=== PATIENT | male | born 1960 | race Caucasian/White ===

== ENCOUNTER → 2016-08-29 | Outpatient (CLI) | payer BC ==
--- NOTE | 2016-08-29 17:48 | CONS ---
DATE: 08/29/2016 CONSULTATION/NEW PATIENT EVALUATION HISTORY OF PRESENT ILLNESS/SLEEP-WAKE EVALUATION: A 56-year-old gentleman who has been evaluated in the sleep center for obstructive sleep apnea/hypopnea syndrome. Patient has been diagnosed with sleep apnea in another institution 2014 with severe apnea-hypopnea index of 47.7. He was started on treatment with CPAP at a pressure of 7 cm of water. Patient continues to use his CPAP equipment at the present time. SLEEP SCHEDULE: His sleep schedule is from midnight about 8:00 a.m. to 10:00 a.m. basically 7 days a week. FALLING ASLEEP: Sometimes he has problem with falling asleep. He has a TV set in bedroom. DURING SLEEP: He increased his weight the last 2 years about 15 pounds. He wakes up from sleep about 3 times. Sometimes he has episodes of nocturia. No history of cataplexy, sleep paralysis or pathological hallucinations. [place] Sleepiness Scale is 5. PAST MEDICAL HISTORY: Positive for depression, sometimes increasing blood pressure. PAST SURGICAL HISTORY: Status post right knee surgery for meniscus problem x2, status post left hand surgery. SOCIAL HISTORY: Negative for smoking. Alcohol consumption occasional. MEDICATIONS: Cymbalta 20 mg once a day. REVIEW OF SYSTEMS: Awakenings from sleep. FAMILY HISTORY: Heart problems, arthritis, lung problems, emphysema, snoring. PHYSICAL EXAMINATION: GENERAL: A 56-year-old gentleman without distress. VITAL SIGNS: BP 161/90, HR 80, RR 16. Height 6 foot 0 inches. Weight 274. BMI 37.1. Neck 18-1/2 inches in circumference. Temp is 98.2. Oxygen saturation at room air 97%. HEENT: PERRLA, EOMI. Evaluation of oropharynx showed tongue protrudes midline, retrognathia 3 mm, extremely low position of soft palate, Mallampati IV. Nose: Nasal septum deviation, restriction of nasal breathing on the right side. NECK: Supple. No JVD. Thyroid is not palpable. LUNGS: Clear to percussion and to auscultation. Good air exchange. No wheezing or rhonchi. HEART: S1, S2 regular. Soft systolic murmur on aorta. ABDOMEN: Obese, soft and nontender. Bowel sounds are present. No organomegaly appreciated. EXTREMITIES: No clubbing or cyanosis. EMERGENCY SERVICE RESTORER: Awake, alert, and oriented x3. Cranial nerves 2 to 7 intact. There is no fasciculation or atrophy noted. No focal deficits observed. IMPRESSION: 1. Severe obstructive sleep apnea/hypopnea syndrome diagnosed 2 years ago in a different institution. According to patient, he continued to use his machine, sometimes wakes up from sleep. 2. Obesity; body mass index 37.1. Patient increased his weight for 2 years since previous titration. 3. Depression. 4. Hypertension in the office today. Positive history of sometimes increasing blood pressure in the past. 5. Status post right knee surgery x2. 6. Status post left hand surgery. 7. Retrognathia. 8. Nasal septum deviation, restriction of nasal breathing on the right side. PLAN: 1. Patient will continue to use his equipment every night for the whole night. 2. Prescription for all necessary CPAP supplies. 3. I will see the patient in several months with his machine to check usage of the machine and also to check apnea-hypopnea index from the machine to be sure that the machine works effectively. 4. No driving if feeling any sleepiness. Thank you very much for allowing me to participate in the management of your patient. Sincerely, Ravi Morrison MD, PhD, FAASM. Diplomat of [place] Board of Sleep Medicine, Sleep Medicine Board by [place] [employer] Specialities [place] Board of Internal Medicine Microwave Engineer of [facility] [place]
== END ==
LOC: SLEEP 10:22
PROVIDERS: ATTEND Internal Medicine
DX: G47.33 Obstructive sleep apnea (adult) (pediatric) (principal); E66.9 Obesity, unspecified; F32.9 Major depressive disorder, single episode, unspecified; I10 Essential (primary) hypertension; M26.19 Other specified anomalies of jaw-cranial base relationship; J34.2 Deviated nasal septum; Z68.37 Body mass index [BMI] 37.0-37.9, adult; Z98.890 Other specified postprocedural states; Z79.899 Other long term (current) drug therapy
CPT/HCPCS: 99211

== ENCOUNTER → 2016-10-31 | Outpatient (CLI) | payer BC ==
--- NOTE | 2016-10-31 20:50 | PN ---
DATE OF SERVICE: 10/31/2016 This patient is a 56-year-old gentleman who has been followed in the sleep center for treatment of obstructive sleep apnea/hypopnea syndrome. At present patient is on treatment with CPAP. He had CPAP titration in a different institution about 2 years ago. At present he wakes up from sleep 3 times. He came to the office with his CPAP unit, which I checked. CPAP pressure is 7 cm of water. Usage is 100% for more than 4 hours, 30 out of 30 nights. Patient is using a full-face mask. RAMP is on automatic regimen. Average use is 7.4 hours. Leak is only 5 L/minute, which is fine. Apnea/hypopnea index reading for the last month is 12.8. [place] Sleepiness Scale today is 9. MEDICATION: Cymbalta. PHYSICAL EXAM: The patient is a pleasant 56-year-old gentleman without distress. VITAL SIGNS: Blood pressure 139/94, heart rate 72, respiratory rate 16. Height 6 feet. Weight 259.8. BMI 35.1. GENERAL: A pleasant patient without distress. HEENT: PERRLA. EOMI. Evaluation of oropharynx showed tongue protrudes midline; extremely low position of soft palate. NECK: Supple. No JVD. Thyroid is not palpable. LUNGS: Clear to percussion and to auscultation. Good air exchange. No wheezing or rhonchi. HEART: S1, S2 regular. No murmurs, gallops or rubs. ABDOMEN: Obese. EXTREMITIES: No clubbing or cyanosis. GLOBAL COMPENSATION MANAGER: Awake, alert and oriented x3. Cranial nerves 2 through 7 are intact. There is no fasciculation or atrophy noted. No focal deficits observed. IMPRESSION: 1. Obstructive sleep apnea/hypopnea syndrome, in severe range, not under full control with CPAP at 7 cm of water. 2. Obesity. 3. Depression. 4. Hypertension in the office. 5. Status post right knee surgery x2. 6. Status post left hand surgery. 7. Nasal septum deviation; restriction of nasal breathing on the right side. PLAN: 1. CPAP titration for reevaluation of effective CPAP pressure at the present time. Patient awakenings from sleep. Apnea/hypopnea index on the machine 12.8. 2. Patient's CPAP unit does not have an option for Auto regimen. 3. Losing weight. 4. Sleep hygiene with regular time in bed for at least 8 hours. 5. No driving if feeling any sleepiness. Thank you very much for allowing me to participate in the management of your patient. Sincerely, Ravi Morrison. , PhD, FAASM. Diplomat of [place] Board of Sleep Medicine, Sleep Medicine Board by [place] Board [employer] Specialities [place] Board of Internal Medicine Hvac Mechanical Engineer of [facility] [place] [facility]
== END ==
LOC: SLEEP 13:04
PROVIDERS: ATTEND Internal Medicine
DX: G47.33 Obstructive sleep apnea (adult) (pediatric) (principal); E66.9 Obesity, unspecified; F32.9 Major depressive disorder, single episode, unspecified; I10 Essential (primary) hypertension; J34.2 Deviated nasal septum; Z96.651 Presence of right artificial knee joint; Z98.890 Other specified postprocedural states; Z79.899 Other long term (current) drug therapy

== ENCOUNTER → 2017-01-01 | Outpatient (CLI) | payer BC ==
--- NOTE | 2017-01-01 16:02 | PN ---
PROGRESS NOTE DATE OF SERVICE: 01/01/2017 A 56-year-old gentleman has been followed in sleep center for treatment of obstructive sleep apnea-hypopnea syndrome. During the previous visit, patient was seen after he had sleep apnea treated in another institution. At that time, he was recommended to have pressure 7 in his machine, but he continued to have some problem with breathing. I empirically increased pressure to 10 and we proceeded with the titration sleep study. I explained the results of the sleep study to the patient today in detail. According to the sleep study, only effective pressure for his breathing was at the range of 15 cm of water. I checked patient's CPAP unit. At CPAP pressure of 10, patient using equipment every night. Average usage is 7.5 hours. Usage of 29 out of 30 nights more than 4 hours, so this indicates extremely good, practically 100% compliance. Leak is 60 L/minute which is normal range. Apnea-hypopnea index reading is 7.1. The patient continued to have some awakenings from sleep and sometimes sleepiness during the day. [place] Sleepiness Scale is 4 over the normal range. MEDICATIONS: Effexor. PHYSICAL EXAMINATION: GENERAL A pleasant patient in no distress. VITAL SIGNS BP 140/95, HR 72, RR 16, weight 249, temp 97, oxygen saturation at room air 98%. HEENT PERRLA, EOMI, evaluation of oropharynx showed tongue protrudes midline, extremely low position of soft palate. Neck Supple, no JVD. Thyroid is not palpable. LUNGS Clear to percussion and to auscultation. Good air exchange. No wheezing or rhonchi. HEART S1, S2 regular. No murmurs, gallops, or rubs. ABDOMEN Soft and nontender. Bowel sounds are present. No organomegaly appreciated. EXTREMITIES No clubbing or cyanosis. INSPECTOR AND SORTER Awake, alert, and oriented X3. Cranial nerves 2 to 7 intact. There is no fasciculation or atrophy. noted. No focal deficits observed. IMPRESSION: 1. Obstructive sleep apnea-hypopnea syndrome. The patient demonstrated 100% compliance with treatment, benefitting from treatment. Still has mild abnormalities of respiration at the pressure of 10 cm of water. I recommended pressure by results of titration is 15 cm of water. 2. Obesity. 3. History of depression. 4. Mild hypertension in the office. 5. Status post right knee surgery x2. 6. Status post left hand surgery. 7. Some restriction of nasal breathing. PLAN: 1. I increased pressure in his CPAP unit up to 15 cm of water. 2. He will continue to use equipment every night. 3. Losing weight. 4. Sleep hygiene with regular time in bed for at least 8 hours. 5. No driving if feeling sleepiness. Thank you very much for allowing me to participate in management of your patient. Sincerely, Ravi Morrison MD, PhD, FAASM Diplomat of [place] Board of Medical Specialties [place] Board of Internal Medicine Inspector Coated Fabrics of [facility] [place] MMODL / INGAN: [id number] /
== END | disposition home or self-care (01) ==
LOC: SLEEP 13:35
PROVIDERS: ATTEND Internal Medicine
DX: G47.33 Obstructive sleep apnea (adult) (pediatric) (principal); E66.9 Obesity, unspecified; I10 Essential (primary) hypertension; Z98.890 Other specified postprocedural states

== ENCOUNTER → 2017-04-03 | Outpatient (CLI) | payer SELFPAY ==
--- NOTE | 2017-04-03 14:22 | PN ---
PROGRESS NOTE DATE OF SERVICE: 04/03/2017 A 57-year-old gentleman who has been followed in the Sleep Center for treatment of obstructive sleep apnea-hypopnea syndrome. Last time I saw patient several months ago. At that time, apnea-hypopnea index on the machine was 7.1 and I increased pressure in CPAP unit up to 15 cm of water following results of the titration. Today, he came for followup visit. He continued to use his machine without problem every night. No problem related to the pressure, mask fitting or humidification. [place] Sleepiness Scale is 1. No snoring. I checked his CPAP unit. Usage is practically 100% of the time more than 4 hours, average 7.2 hours. Leak is 18 L/minute, which is acceptable. Apnea-hypopnea index 5.0 for the last month. MEDICATIONS: Effexor. PHYSICAL EXAM: Patient in no distress. BP on the right arm 156/96, on left arm 148/85, HR 82, RR 16, height 6,0, weight 257, BMI 34.8, temp 97.1. Oxygen saturation on room air 96%. OROPHARYNX: Extremely low position of soft palate. ABDOMEN: Obese. Neck Supple, no JVD. Thyroid is not palpable. LUNGS Clear to percussion and to auscultation. Good air exchange. No wheezing or rhonchi. HEART S1, S2 regular. No murmurs, gallops, or rubs. EXTREMITIES No clubbing or cyanosis. DIRECTOR OF SOFTWARE DEVELOPMENT Awake, alert, and oriented X3. Cranial nerves 2 to 7 intact. There is no fasciculation or atrophy. noted. No focal deficits observed. IMPRESSION: 1. Obstructive sleep apnea-hypopnea syndrome. Patient demonstrated great compliance with treatment benefitting from treatment. 2. Obesity, body mass index 34.8. 3. Again hypertension in the office today. 4. History of depression. 5. Status post right knee surgery x2. 6. Status post left hand surgery. 7. Some restriction of nasal breathing. PLAN: 1. Continue treatment with CPAP every night for the whole night. 2. Losing weight. 3. Sleep hygiene with regular time in bed for at least 8 hours. 4. No driving if feeling any sleepiness. 5. Follow-up visit in 1 year. Sincerely, Ravi Morrison MD, PhD, FAASM Diplomat of [place] Board of Medical Specialties [place] Board of Internal Medicine Operational Risk Consultant of [facility] [place] MMODL / INGAN: [id number] /
== END | disposition home or self-care (01) ==
LOC: SLEEP 13:04
PROVIDERS: ATTEND Internal Medicine
DX: G47.33 Obstructive sleep apnea (adult) (pediatric) (principal); F32.9 Major depressive disorder, single episode, unspecified; I10 Essential (primary) hypertension; E66.9 Obesity, unspecified; R06.89 Other abnormalities of breathing; Z68.34 Body mass index [BMI] 34.0-34.9, adult; Z98.890 Other specified postprocedural states; Z99.89 Dependence on other enabling machines and devices; Z79.899 Other long term (current) drug therapy

== ENCOUNTER → 2018-07-30 | Outpatient (CLI) | payer OTHER ==
--- NOTE | 2018-07-30 11:45 | SFUN ---
SLEEP CENTER FOLLOW UP NOTE DATE OF SERVICE: 07/30/2018 This 58-year-old gentleman had been followed in sleep center for treatment of obstructive sleep apnea-hypopnea syndrome. The patient successfully continues to use his CPAP equipment every night, but recently started to have more awakenings during the day. [place] Sleepiness Scale today is 8. The patient increased his weight 18 pounds since previous titration. I checked CPAP unit. CPAP pressure is 15 cm of water. I reviewed results of previous sleep study. At 15 cm of water, it was the highest pressure during the previous sleep study and on that pressure apnea-hypopnea index during titration was 6.7. With a lower pressure, apnea-hypopnea index significantly increased. I checked patient's CPAP unit. CPAP pressure is 15 cm of water. Usage is 28 out of 30 nights and 25 out of 30 nights for more than 4 hours, which is very good compliance. Leak is 10 L/minute which is normal. Apnea-hypopnea index for the last month, 8.1. During previous visit, it was 5.0. For the last year, the patient was started on treatment with medications for hypertension. MEDICATIONS: Lisinopril hydrochlorothiazide and Effexor. PHYSICAL EXAMINATION: During physical exam, patient in no distress. VITAL SIGNS: BP 151/97, HR 70, RR 16, height 6 feet, 0 inches, weight 275, BMI 37.2, temperature 97.2, oxygen saturation at room air 97% HEENT: PERRLA, EOMI. Oropharynx extremely low position of soft palate. Mallampati 4. NECK: Supple, no JVD. Thyroid is not palpable. LUNGS: Clear to percussion and to auscultation. Good air exchange. No wheezing or rhonchi. HEART: S1, S2 regular. No murmurs, gallops, or rubs. ABDOMEN: Obese. EXTREMITIES: No clubbing or cyanosis. RN PERITONEAL DIALYSIS: Awake, alert, and oriented X3. Cranial nerves 2 to 7 intact. There is no fasciculation or atrophy. noted. No focal deficits observed. IMPRESSION: 1. Obstructive sleep apnea-hypopnea syndrome. Patient demonstrated great compliance with treatment. Slight increasing apnea-hypopnea index comparing with the previous visit and I believe related to increasing weight. 2. Obesity. Patient increased his weight pounds. 3. Hypertension. 4. History of depression. 5. Status post right knee surgery x2. 6. Status post left hand surgery. 7. Some restriction of nasal breathing. PLAN: 1. Continue treatment with CPAP every night for the whole night. 2. I will increase CPAP pressure up to 17 cm of water. 3. I will see patient in 1 to 1-1/2 months to re-evaluate clinical response of treatment and check apnea-hypopnea index. 4. Losing weight. 5. Sleep hygiene with regular time in bed for at least 8 hours. 6. No driving if feeling any sleepiness. Thank you very much for allowing me to participate in management of your patient. Sincerely, Ravi Morrison MD, PhD, FAASM Diplomat of [place] Board of Medical Specialties Nigerian Board of Internal Medicine Stock Broker of [facility] [place] MMODL / ANISH: [id number] /
== END | disposition home or self-care (01) ==
LOC: SLEEP 10:27
PROVIDERS: ATTEND Internal Medicine
DX: G47.33 Obstructive sleep apnea (adult) (pediatric) (principal); I10 Essential (primary) hypertension; E66.9 Obesity, unspecified; F32.9 Major depressive disorder, single episode, unspecified; Z99.89 Dependence on other enabling machines and devices; Z79.899 Other long term (current) drug therapy; Z68.37 Body mass index [BMI] 37.0-37.9, adult; Z98.890 Other specified postprocedural states

== ENCOUNTER → 2018-10-01 | Outpatient (CLI) | payer OTHER ==
--- NOTE | 2018-10-01 14:54 | SFUN ---
SLEEP CENTER FOLLOW UP NOTE DATE OF SERVICE: 10/01/2018 A 58-year-old gentleman who has been followed in the Sleep Center for treatment of obstructive sleep apnea-hypopnea syndrome. During previous visit in July of 2018, reading from the machine showed slightly increased apnea-hypopnea index to 8.1, and I subsequently changed his pressure in the machine, increased it to 17 cm of water. Presently, patient continued to use his CPAP equipment every night for the whole night. Does not have any significant problems related to the pressure. [place] Sleepiness Scale today is 10. I checked his CPAP unit. CPAP pressure 17 cm of water. Usage is 29/30 nights more than 4 hours with average usage 6.8 hours. Leak 28 L/minute. Apnea-hypopnea index for the last month's 4.8, for the last night 3.9, which is normal range. MEDICATIONS: Lisinopril, hydrochlorothiazide, and Effexor. PHYSICAL EXAM: Patient in no distress, BP 114/74, HR 92, RR 16, height 6, 0 inches, weight 279. Body mass index 37.8, temperature 97.7, oxygen saturation at room air 97%. OROPHARYNX: Low position of soft palate. Mallampati 4. ABDOMEN: Slightly obese. Neck Supple, no JVD. Thyroid is not palpable. LUNGS Clear to percussion and to auscultation. Good air exchange. No wheezing or rhonchi. HEART S1, S2 regular. No murmurs, gallops, or rubs. EXTREMITIES No clubbing or cyanosis. AMUSEMENT PARK ENTERTAINER Awake, alert, and oriented X3. Cranial nerves 2 to 7 intact. There is no fasciculation or atrophy. noted. No focal deficits observed. IMPRESSION: 1. Obstructive sleep apnea-hypopnea syndrome. Patient demonstrated great compliance with treatment, benefitting from treatment. 2. Obesity. 3. Hypertension. 4. History of depression. 5. Status post right knee surgery x2. 6. Status post left hand surgery. PLAN: 1. Patient will continue treatment with CPAP with the same regimen of pressure every night for the whole night. 2. Will maintain all necessary CPAP prescriptions. 3. Losing weight. 4. Sleep hygiene with regular time in bed for at least 8 hours. 5. No driving if feeling sleepiness. Thank you very much for allowing me to participate in the management of your patient. Sincerely, Ravi Morrison MD, PhD, FAASM Diplomat of [place] Board of Medical Specialties Swedish Board of Internal Medicine Potato Chip Sacking Machine Operator of [facility] [place] MMODL / INGAN: [id number] /
== END | disposition home or self-care (01) ==
LOC: SLEEP 13:56
PROVIDERS: ATTEND Internal Medicine
DX: G47.33 Obstructive sleep apnea (adult) (pediatric) (principal); E66.9 Obesity, unspecified; I10 Essential (primary) hypertension; Z68.37 Body mass index [BMI] 37.0-37.9, adult; Z86.59 Personal history of other mental and behavioral disorders; Z99.89 Dependence on other enabling machines and devices; Z98.890 Other specified postprocedural states; Z79.899 Other long term (current) drug therapy

== ENCOUNTER → 2020-05-18 | Outpatient (CLI) | payer OTHER ==
--- NOTE | 2020-05-18 22:13 | SFUN ---
SLEEP CENTER FOLLOW UP NOTE DATE OF SERVICE: 05/18/2020 This is a 60-year-old gentleman who has been followed in the sleep center for treatment of obstructive sleep apnea-hypopnea syndrome. The patient continues to use CPAP equipment every night for the whole night. He does not snore with the machine. He needs to change his mask. Last time he was seen in the sleep center was about 1-1/2 years ago. [place] Sleepiness Scale today is 8. I checked his CPAP equipment. CPAP pressure is 17 cm of water. Usage is 30/30 nights, and 28/30 nights for more than 4 hours. Average usage is 6 hours per night. Leak is high at 47 L/minute, but apnea-hypopnea index is in normal range at 3.8. MEDICATIONS: 1. Effexor 150 mg once a day. 2. Lisinopril/hydrochlorothiazide. Patient does not remember the dosage. PHYSICAL EXAMINATION: GENERAL: A pleasant patient in no distress. VITAL SIGNS: BP 142/81, HR 90, RR 16, height 6 feet 1/2 inch, weight 273.8 pounds, BMI 37, temperature 97.4, oxygen saturation at room air 99%. HEENT: PERRLA, EOMI. Evaluation of oropharynx showed tongue protrudes midline. Extremely low position of soft palate. Mallampati IV. NECK: Supple. No JVD. Thyroid is not palpable. LUNGS: Clear to percussion and to auscultation. Good air exchange. No wheezing or rhonchi. HEART: S1, S2 regular. No murmurs, gallops or rubs. ABDOMEN: Obese. EXTREMITIES: No clubbing or cyanosis. CANNERY WORKER: Awake, alert, and oriented X3. Cranial nerves 2 to 7 intact. There is no fasciculation or atrophy. noted. No focal deficits observed. IMPRESSION: 1. Obstructive sleep apnea-hypopnea syndrome. Patient demonstrated great compliance with treatment, benefitting from treatment. 2. Obesity. 3. History of depression. 4. Hypertension. 5. Status post right knee surgery x2. 6. Status post left hand surgery. PLAN: 1. Patient will continue to use PAP equipment every night for the whole night. 2. Sleep hygiene with regular time in bed for at least 7-1/2 to 8 hours. 3. Precautions related to driving. No driving if feeling sleepiness. 4. I will maintain all necessary prescription for PAP supplies including mask, tube, filters. 5. Watching weight. 6. No driving if feeling sleepiness. 7. Follow-up visit in 6 months or earlier if patient has any problems. Thank you very much for allowing me to participate in the management of your patient. Sincerely, Ravi Morrison MD, PhD, FAASM Diplomat of [place] Board of Medical Specialties [place]and[place] Board of Internal Medicine Woodworking Machine Offbearer of [facility] [place] MMODL / INGAN: [id number] /
== END | disposition home or self-care (01) ==
LOC: SLEEP 14:01
PROVIDERS: ATTEND Internal Medicine
DX: G47.33 Obstructive sleep apnea (adult) (pediatric) (principal); E66.9 Obesity, unspecified; I10 Essential (primary) hypertension; Z86.59 Personal history of other mental and behavioral disorders; Z98.890 Other specified postprocedural states; Z79.899 Other long term (current) drug therapy; Z99.89 Dependence on other enabling machines and devices

== ENCOUNTER → 2020-12-14 | Outpatient (CLI) | payer OTHER ==
--- NOTE | 2020-12-14 21:26 | SFUN ---
SLEEP CENTER FOLLOW UP NOTE DATE OF SERVICE: 12/14/2020 60-year-old gentleman has been followed in Sleep Center for treatment of obstructive sleep apnea-hypopnea syndrome. The patient continued to use CPAP therapy every night. No snoring with the machine. He is getting his supplies in time. Presently he has 2 CPAP units and he is using both units. I checked both units, 1 unit CPAP pressure is 17 cm of water. Usage is 18/30 nights and 14/30 nights for more than 4 hours, average 6.5 hours per night. Leak is 30 L/minute. Apnea-hypopnea index is 4.1 which is normal. Second machine: CPAP pressure is 17 cm of water. Usage is 13/30 nights and 11/30 nights for more than 4 hours, average 6.6 hours per night. Leak is high 109 L/minute. Apnea-hypopnea index 4.0. I discussed results of reading from the machine with patient in detail. He needs to use new mask when he is using second machine. [place] Sleepiness Scale today is 6, which is normal. MEDICATIONS: Lisinopril hydrochlorothiazide 10/12.5 once a day, venlafaxine ER 75 mg once a day, amlodipine 5 mg once a day. PHYSICAL EXAMINATION: GENERAL: Patient in no distress. BP 143/88, HR 95, RR 15, height 6 feet 1-1/2 inches, weight 2776, body mass index 37, temperature 97.5, oxygen saturation at room air 92%. Oropharynx: Extremely low position of soft palate, Mallampati 4. NECK: Supple, no JVD. Thyroid is not palpable. LUNGS: Clear to percussion and to auscultation. Good air exchange. No wheezing or rhonchi. HEART: S1, S2 regular. No murmurs, gallops, or rubs. ABDOMEN: Slightly obese. Soft and nontender. Bowel sounds are present. No organomegaly appreciated. EXTREMITIES: No clubbing or cyanosis. SUPERVISOR WOOD CREW: Awake, alert, and oriented X3. Cranial nerves 2 to 7 intact. There is no fasciculation or atrophy. noted. No focal deficits observed. IMPRESSION: 1. Obstructive sleep apnea-hypopnea syndrome. Patient demonstrated great compliance with treatment, benefitting from treatment. 2. Obesity, body mass index 37.0. The patient increased his weight about 4 pounds since previous visit. 3. History of depression. 4. Hypertension. 5. Status post right knee surgery x2. 6. Status post left knee surgery. PLAN: 1. Patient will continue to use PAP equipment every night for the whole night. 2. Sleep hygiene with regular time in bed for at least 7-1/2 to 8 hours. 3. Precautions related to driving. No driving if feeling sleepiness. 4. I will maintain all necessary prescription for PAP supplies including mask, tube, filters. 5. Watching weight. 6. Follow-up visit in 6 months or earlier if patient has any problems. Thank you very much for allowing me to participate in management of your patient. Sincerely, Ravi Morrison MD, PhD, FAASM Diplomat of [place] [employer] of Medical Specialties Sleep Medicine Board of [place] Board of Internal Medicine Banquet Bartender of [facility] [place] JT / ANISH: [id number] /
== END ==
LOC: SLEEP 14:10
PROVIDERS: ATTEND Internal Medicine
DX: G47.33 Obstructive sleep apnea (adult) (pediatric) (principal); E66.9 Obesity, unspecified; F32.9 Major depressive disorder, single episode, unspecified; I10 Essential (primary) hypertension; Z68.37 Body mass index [BMI] 37.0-37.9, adult; Z98.890 Other specified postprocedural states

== ENCOUNTER → 2021-06-13 | Outpatient (CLI) | payer OTHER ==
--- NOTE | 2021-06-13 19:24 | SFUN ---
SLEEP CENTER FOLLOW UP NOTE DATE OF SERVICE: 06/13/2021 This 61-year-old gentleman has been followed in Sleep Center for treatment of obstructive sleep apnea-hypopnea syndrome. The patient has two CPAP units. [place] I checked [place] CPAP units. CPAP unit #1 has pressure of 17 cm of water. Usage is /30 nights, average 7.8 hours per night. Leak is 16 L/minute. Apnea-hypopnea index 8.4, which is slightly above normal range. Unit #2 pressure is 17 cm of water. Usage is 02/20 nights, average 6.4 hours per night. Leak is high at 35 L/minute, but apnea- hypopnea index is in normal range, 4.9. [place] Sleepiness Scale today is 6. MEDICATIONS: 1. Effexor 75 mg once a day. 2. Lisinopril/hydrochlorothiazide 20/25 mg once a day. 3. Amlodipine 5 mg once a day. PHYSICAL EXAMINATION: GENERAL: Pleasant patient in no distress. VITAL SIGNS: BP 122/83, HR 84, RR 16, weight 265.2, height 6 feet 1-1/2 inches. The patient lost about 12 pounds. Temperature 96.6, oxygen saturation at room air 97%. HEENT: PERRLA, EOMI, evaluation of oropharynx showed tongue protrudes midline. Extremely low position of soft palate; Mallampati IV. NECK: Supple, no JVD. Thyroid is not palpable. LUNGS: Clear to percussion and to auscultation. Good air exchange. No wheezing or rhonchi. HEART: S1, S2 regular. No murmurs, gallops, or rubs. ABDOMEN: Slightly obese. EXTREMITIES: No clubbing or cyanosis. BARROW WORKER HELPER: Awake, alert, and oriented X3. Cranial nerves 2 to 7 intact. There is no fasciculation or atrophy. noted. No focal deficits observed. IMPRESSION: 1. Obstructive sleep apnea-hypopnea syndrome. Patient demonstrated 100% compliance with treatment, benefitting from treatment. 2. Hypertension. 3. History of depression. 4. Obesity. 5. Status post right knee surgery x2. 6. Status post left knee surgery. PLAN: 1. I increased the pressure in machine #1 to 18 cm of water. 2. Patient will continue to use PAP equipment every night for the whole night. 3. Sleep hygiene with regular time in bed for at least 7-1/2 to 8 hours. 4. Precautions related to driving. No driving if feeling sleepiness. 5. I will maintain all necessary prescription for PAP supplies including mask, tube, filters. 6. Watching weight. 7. Follow-up visit in 6 months or earlier if patient has any problems. Thank you very much for allowing me to participate in the management of your patient. Sincerely, Ravi Morrison MD, PhD, FAASM Diplomat of [employer] Sleep Medicine Board of [employer] Assistant Professor Of [employer] of [place] [facility] MMODL / INGAN: [id number] /
== END ==
LOC: SLEEP 13:45
PROVIDERS: ATTEND Internal Medicine
DX: G47.33 Obstructive sleep apnea (adult) (pediatric) (principal); I10 Essential (primary) hypertension; F32.A Depression, unspecified; E66.9 Obesity, unspecified; Z98.890 Other specified postprocedural states; Z99.89 Dependence on other enabling machines and devices

== ENCOUNTER → 2021-12-19 | Outpatient (CLI) | payer OTHER ==
--- NOTE | 2021-12-19 14:45 | P.PN ---
Subjective DATE: 12/19/2021 FOLLOW UP VISIT. Patient with obstructive sleep apnea hypopnea syndrome return to sleep center for follow-up visit. Information from previous visit have been reviewed. Patient is using PAP equipment every night for the whole night, getting PAP supplies in time. The patient does not have significant problems with the mask, PAP unit and humidification. G[place]pie sleepiness scale is 9. I checked two PAP units. Unit 1 PAP unit pressure 17 cm H2O. Usage is 24 out of 30 nights for more then 4 hours, average 6.8 hours per night. Leak is 25 l/m, which is in acceptable range. Apnea Hypopnea Index is 3.5, which is normal. Unit 2 PAP unit pressure 18 cm H2O. Usage is 5 out of 30 nights for more then 4 hours, average 7.2 hours per night. Leak is 6 l/m, which is in acceptable range. Apnea Hypopnea Index is 3.4, which is normal. MEDICATIONS:1. Amlodipine 5 mg once a day 2. Lisinopril/hydrochlorothiazide 20 mg/25 mg once a day 3. Venlafaxine 75 mg once a day During physical exam: GENERAL: A pleasant patient without any distress. VITAL SIGNS: BP 127/80, HR 77, RR 16 , weight 259.8, temperature 96.7, oxygen saturation at room air 96 % . HEENT: PERRLA, EOMI.low position of soft palate, Mallapati 4 . NECK: Supple. No JVD. LUNGS: Clear to percussion and to auscultation. Good air exchange. No wheezing or rhonchi. HEART: S1, S2 regular. ABDOMEN: Soft and nontender.[] EXTREMITIES: No clubbing or cyanosis. APPELLATE LAW CLERK: Awake, alert, and oriented x3. No focal deficit. Impressions: 1. Obstructive sleep apnea-hypopnea syndrome. Patient demonstrated great compliance with treatment, benefiting from treatment. 2. Hypertension. 3. Obesity. 4. History of depression. 5. Status post a right knee surgery 2. 6. Status post left knee surgery. Plan: 1. Continue using PAP equipment every night for the whole night. 2. To change air filter at least 1-2 times per month. 3. PAP unit should stay lower then position of the head. 4. Advised patient to remove all remaining water from humidifier canister daily and make it dry after each usage. Refill canister with fresh distilled water before each usage. 5. Sleep hygiene with regular time in bed for at least 8 hours. 6. Precautions related to driving. No driving if feel any sleepiness. 7. I will maintain prescription for PAP supplies including mask, tube, filters. 8. Follow up visit in 6 months or earlier if patient has any problems. 9. Watching weight. Thank you very much for allowing me to participate in the management of your patient. Ravi Morrison MD, PhD, FAASM. Diplomat of [employer], Sleep Medicine Board by [employer] Sports Administrator of [facility] [place]
== END ==
LOC: SLEEP 13:29
PROVIDERS: ATTEND Internal Medicine
DX: G47.33 Obstructive sleep apnea (adult) (pediatric) (principal); I10 Essential (primary) hypertension; E66.9 Obesity, unspecified; F32.A Depression, unspecified; Z98.890 Other specified postprocedural states; Z99.89 Dependence on other enabling machines and devices; Z88.0 Allergy status to penicillin; F17.200 Nicotine dependence, unspecified, uncomplicated